=== PATIENT | female | born 1985 | race Caucasian/White ===

== ENCOUNTER 2021-01-07 19:22 | Emergency (ER) | payer OTHER ==
[2021-01-07 21:39] LABS: CORONAVIRUS 2019 SARS-COV-2 NEGATIVE (NEGATIVE); INFLUENZA A NAA NEGATIVE (NEGATIVE)
[2021-01-08] MEDS ORDERED: AUGMENTIN 875-1 EACH PO (02:33)
== END 2021-01-08 02:40 | disposition home or self-care (01) ==
LOC: FER 19:22
PROVIDERS: Emergency Medicine
DX: G44.40 Drug-induced headache, not elsewhere classified, not intractable (principal); T43.3X5A Adverse effect of phenothiazine antipsychotics and neuroleptics, initial encounter; Z20.822 Contact with and (suspected) exposure to COVID-19
CPT/HCPCS: 70450; 71045; J0780; J1200; J1885; J2060; J2405; U0002